=== PATIENT | male | born 2000 | race Caucasian/White ===

== ENCOUNTER 2023-03-28 06:24 | Emergency (ER) | payer SELFPAY ==
[~2023-03-28] VITALS: Ht 172.7 cm; Wt 100.0 kg
[2023-03-28 06:34] VITALS: TEMP 97.5
[2023-03-28] MEDS ORDERED: ILOTYCIN5 MG/GM OP (07:01)
[2023-03-28] MEDS ORDERED: CEPHALEXIN500 M1 PO (07:01)
[2023-03-28 07:21] VITALS: BP 122/69; PULSE 76
== END 2023-03-28 07:21 | disposition home or self-care (01) ==
LOC: COL.ER 06:24
DX: H10.9 Unspecified conjunctivitis (principal); H00.031 Abscess of right upper eyelid; Z28.310 Unvaccinated for COVID-19